=== PATIENT | male | born 1995 | race Caucasian/White ===

== ENCOUNTER 2023-11-01 14:53 | Emergency (ER) | payer SELFPAY ==
--- NOTE | 2023-11-01 14:52 | ECG_ITS ---
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 Measurements Intervals [place] Rate: 84 P: 76 OK: 152 QRS: 73 QRSD: 106 T: 46 QT: 356 QTc: 423 Interpretive Statements SINUS RHYTHM POSSIBLE LEFT ATRIAL ENLARGEMENT [-0.1mV P-WAVE IN V1/V2] POSSIBLE RIGHT VENTRICULAR CONDUCTION DELAY [RSR (QR) IN V1/V2] No previous ECG available for comparison Electronically Signed On 11-01-2023 22:49:22 CDT by Carito Edwards M.D. [email or web address].[email or web address]/store/[id number]
[2023-11-01 15:00] VITALS: BP 140/86; PULSE 68; RESP 16; TEMP 36.7; O2SAT 100; BMI 26.6
--- NOTE | 2023-11-01 15:42 | XR_ITS ---
WS: [id number] Exam: XR chest 1V portable [id number] Date/Time of Exam: 11/01/2023 3:43 PM Reason For Exam: chest pain No priors. Findings: The lungs are clear and fully expanded. Costophrenic angles are sharp. No infiltrates. Bronchovascula r relief appears normal. Cardiac silhouette is unremarkable. Bony elements are intact. XR/XR chest 1V portable [id number] IMPRESSION: Unremarkable chest radiograph.
[2023-11-01 16:15] LABS: Basophils % 0.5 %; Eosinophils # 0.1 10^3/uL (0.0-0.8); Eosinophils % 0.7 %; Hematocrit 42.9 % (37-53); Lymphocytes # 1.7 10^3/uL (0.8-4.8); Lymphocytes % 21.5 %; Mean Corpuscular HGB Conc 32.9 g/dL (30-55); Mean Corpuscular Hemoglobin 27.8 pg (27-33); Mean Corpuscular Volume 84.6 fl (82-101); Mean Platelet Volume 10.3 fL (7.4-10.4); Monocytes # 0.6 10^3/uL (0.2-0.9); Monocytes % 7.1 %; Neutrophils # 5.61 10^3/uL (1.8-7.7); Nucleated Red Blood Cells % 0 %; Platelet Count 333 10^3/cmm (157-399); Red Blood Count 5.07 10^6/uL (3.85-5.65); Red Cell Distribution Width 13.1 % (12.1-15.1); White Blood Count 8.03 10^3/uL (3.29-11.43)
[2023-11-01 16:33] LABS: Alanine Aminotransferase 14 U/L (0-41); Alkaline Phosphatase 70 U/L (40-130); Anion Gap 19.1 (5-19); Aspartate Amino Transferase 17 U/L (0-40); Blood Urea Nitrogen 10 mg/dL (6-20); Calcium 9.7 mg/dL (8.5-10.5); Carbon Dioxide 24 mmol/L (22-29); Chloride 100 mmol/L (98-107); Globulin 2.5 g/dL (1.3-4.6); Glomerular Filtration Rate 89.6 mL/min (90-130); Glucose 91 mg/dL (65-115); Osmolality Calculated 287 mOsm/kg (285-295); Potassium 4.1 mmol/L (3.5-5.1); Sodium 139 mmol/L (136-145); Total Bilirubin 1.1 mg/dL (0.15-1.2); Total Protein 7.5 g/dL (6.6-8.7)
[2023-11-01 16:39] LABS: Troponin(5th) Baseline < 6 ng/L (0-15)
[2023-11-01 16:50] VITALS: BP 158/89; PULSE 71; O2SAT 100
--- NOTE | 2023-11-01 17:19 | ED_ITS ---
HPI - Chest Pain 2 General: Chief Complaint: Chest Pain Stated Complaint: chest pain / lt arm numb Time Seen by Provider: 11/01/23 16:41 History of Present Illness: 28-year-old male presents emergency room with complaints of chest discomfort. He had chest discomfort on the left side of his chest radiating down his left arm worse with coughing. 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 He has no known history of any arrhythmias. No previous cardiac issues. Earlier today he had numbness and tingling extending into both hands and his face that has resolved. He is not currently having any symptoms. Associated symptoms: Deny abdominal pain, dyspnea or fever(s) Related Data Previous Rx's Medication Instructions Recorded pantoprazole 40 mg tablet,delayed 40 mg PO DAILY 8 weeks #60 tabs 11/01/23 release Allergies Allergy/AdvReac Type Severity Reaction Status Date / Time No Known Allergies Allergy Verified 11/01/23 15:04 Review of Systems 2 Const: Denies: fever(s) or chills Card: Denies: chest pain Resp: Denies: dyspnea GI: Denies: abdominal pain : Denies: dysuria, urinary frequency or urinary urgency Musc: Denies: neck pain or back pain Skin/Breast: Denies: rash Physical Exam 2 Const: COMMON NORMALS: no acute distress GENERAL APPEARANCE: cooperative and comfortable ORIENTATION/CONSCIOUSNESS: Yes awake, Yes oriented to person, Yes oriented to place and Yes oriented to time HENMT: COMMON NORMALS: normocephalic, atraumatic and hearing grossly normal bilaterally HEAD & SCALP: normocephalic and atraumatic Resp: COMMON NORMALS: normal respiratory effort, No retractions, No use of accessory muscles and clear to auscultation bilaterally AUSCULTATION: clear to auscultation bilaterally Cardio: COMMON NORMALS: regular rate, regular rhythm and No murmurs present (Cardio) RATE: regular rate RHYTHM: regular rhythm GI: COMMON NORMALS: Soft to palpation and No hepatosplenomegaly present A USCULTATION: Yes normoactive bowel sounds PALPATION: Yes Soft to palpation, No Tenderness to palpation present (GI), No Guarding due to palpation present (GI) and Yes No hepatosplenomegaly present Extremity: COMMON NORMALS: normal to inspection, capillary refill normal, no clubbing, cyanosis or edema, no calf tenderness and no pedal edema Neuro: SENSORIUM/ORIENTATION: Yes oriented to person, Yes oriented to place and Yes oriented to time Skin: COMMON NORMALS: no rashes or lesions noted GENERAL SKIN EXAM: no rashes or lesions noted Course 2 Vital Signs: Vital signs: Vital Signs Temperature 98.1 F 11/01/23 15:00 Pulse Rate 71 11/01/23 16:50 Respiratory Rate 16 11/01/23 15:00 Blood Pressure 158/89 11/01/23 16:50 Pulse Oximetry 100 11/01/23 16:50 Oxygen Delivery Me thod Room Air 11/01/23 16:50 MDM - Chest Pain Medical Decision Making EKG showed normal sinus rhythm no acute changes. Initial troponin in the normal range laboratory test not show any clinically significant abnormality and chest x-ray is normal. Patient chest x-ray was normal. We are not able to complete the workup as patient insisted on leaving. We did give him a prescription from pantoprazole from his description of things I think he may have been hyperventilating earlier and some of his chest pain is likely from reflux. We did try to encourage him to stay but he insisted on leaving. Encouraged him to return if he has any recurrence of symptoms or changes mind and wishes to complete the workup Lab Data I reviewed the patient's lab results. 11/01/23 16:04 11/01/23 16:04 Radiology Impressions Chest X-Ray 11/01/23 15:42 IMPRESSION: Unremarkable chest radiograph. Laboratory Results WBC 8.03 10^3/uL (3.29-11.43) 11/01/23 16:04 RBC 5.07 10^6/uL (3.85-5.65) 11/01/23 16:04 Hgb 14.10 g/dL (11.27-16.99) 11/01/23 16:04 Hct 42.9 % (37-53) 11/01/23 16:04 MCV 84.6 fl (82-101) 11/01/23 16:04 MCH 27.8 pg (27-33) 11/01/23 16:04 MCHC 32.9 g/dL (30-55) 11/01/23 16:04 RDW 13.1 % (12.1-15.1) 11/01/23 16:04 Plt Count 333 10^3/cmm (157-399) 11/01/23 16:04 MPV 10.3 fL (7.4-10.4) 11/01/23 16:04 Neut % (Auto) 70.0 % 11/01/23 16:04 Lymph % (Auto) 21.5 % 11/01/23 16:04 [place] % (Auto) 7.1 % 11/01/23 16:04 Eos % (Auto) 0.7 % 11/01/23 16:04 Baso % (Auto) 0.5 % 11/01/23 16:04 Neut # (Auto) 5.61 10^3/uL (1.8-7.7) 11/01/23 16:04 Lymph # (Auto) 1.7 10^3/uL (0.8-4.8) 11/01/23 16:04 [place] # (Auto) 0.6 10^3/uL (0.2-0.9) 11/01/23 16:04 Eos # (Auto) 0.1 10^3/uL (0.0-0.8) 11/01/23 16:04 Baso # (Auto) 0.0 10^3/uL (0.0-0.1) 11/01/23 16:04 Nucleated RBC % (auto) 0 % 11/01/23 16:04 Nucleated RBCs # 0.0 /100WBC 11/01/23 16:04 Sodium 139 mmol/L (136-145) 11/01/23 16:04 Potassium 4.1 mmol/L (3.5-5.1) 11/01/23 16:04 Chloride 100 mmol/L (98-107) 11/01/23 16:04 Carbon Dioxide 24 mmol/L (22-29) 11/01/23 16:04 Anion Gap 19.1 (5-19) H 11/01/23 16:04 BUN 10 mg/dL (6-20) 11/01/23 16:04 Creatinine 1.0 mg/dL (0.7-1.2) 11/01/23 16:04 GFR Calculation 89.6 mL/min (90-130) L 11/01/23 16:04 Glucose 91 mg/dL (65-115) 11/01/23 16:04 Calculated Osmolality 287 mOsm/kg (285-295) 11/01/23 16:04 Calcium 9.7 mg/dL (8.5-10.5) 11/01/23 16:04 Total Bilirubin 1.1 mg/dL (0.15-1.2) 11/01/23 16:04 AST 17 U/L (0-40) 11/01/23 16:04 ALT 14 U/L (0-41) 11/01/23 16:04 Alkaline Phosphatase 70 U/L (40-130) 11/01/23 16:04 Troponin T Baseline < 6 ng/L (0-15) 11/01/23 16:04 Total Protein 7.5 g/dL (6.6-8.7) 11/01/23 16:04 Albumin 5.0 g/dL (3.5-5.2) 11/01/23 16:04 Globulin 2.5 g/dL (1.3-4.6) 11/01/23 16:04 Urine Opiates Screen Negative ng/mL (Negative) 11/01/23 17:05 Ur Barbiturates Screen Negative ng/mL (Negative) 11/01/23 17:05 Ur Phencyclidine Scrn Negative ng/mL (Negative) 11/01/23 17:05 Ur Amphetamines Screen Negative ng/mL (Negative) 11/01/23 17:05 U Benzodiazepines Scrn Negative ng/mL (Negative) 11/01/23 17:05 Urine Cocaine Screen Negative ng/mL (Negative) 11/01/23 17:05 U Marijuana (THC) Screen Negative ng/mL (Negative) 11/01/23 17:05 All radiology interpretation(s) finalized by discharge Discharge Plan Discharge Patient Disposition: Home Clinical Impression: Atypical chest pain Condition: Stable Prescriptions: New pantoprazole 40 mg tablet,delayed release (DR/EC) 40 mg PO DAILY 56 Days Qty: 60 0RF Discharge Orders: Discharge ED (Routine); Ordered 11/01/23 Ordered By: Koffi Story Discharge Diet: As Directed Discharge Activity: Resume usual activity Patient Instructions: Diet for Stomach Ulcers and Gastritis (ED), GERD (Gastroesophageal Reflux Disease) (ED), Opioid Safety, Pain Management Activity Restrictions/Additional Instructions: Thank you for choosing [facility] for your healthcare needs today. It is very important that you follow up as instructed or that you return to the Emergency Department should you have concerns or if your condition changes or worsens in any way. You were seen in the emergency room with complaints of chest discomfort. Family description suspect that your discomfort is due to reflux. Your chest x-ray was normal your EKG was normal your first troponin was normal. Before we were able to complete the full workup you stated you wish to leave. We are discharging you with medication for your stomach. If at any point you wish to complete the workup you are welcome to return. I would recommend that you follow-up with your doctor within the next 1 to 2 weeks. If you have worsening symptoms return to the emergency room Coding Level of Care Code ED Dealer Analyst for Lili Skinner
--- NOTE | 2023-11-01 17:25 | ECG_ITS ---
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 Measurements Intervals [place] Rate: 61 P: 66 RI: 150 QRS: 77 QRSD: 106 T: 57 QT: 383 QTc: 388 Interpretive Statements SINUS RHYTHM POSSIBLE RIGHT VENTRICULAR CONDUCTION DELAY [RSR (QR) IN V1/V2] EARLY REPOLARIZATION [ST ELEVATION WITH NORMALLY INFLECTED T-WAVE] Compared to ECG 11/01/2023 14:52:55 Early repolarization now present Electronically Signed On 11-01-2023 23:00:31 CDT by Carito Edwards M.D. [id number]
[2023-11-01 18:15] LABS: Amphetamines Screen Urine Negative (Negative); Barbiturates Screen Urine Negative (Negative); Benzodiazepines Screen Urine Negative (Negative); Cocaine Screen Urine Negative (Negative); Opiate Screen Urine Negative (Negative); PCP Screen Urine Negative (Negative); THC Screen Urine Negative (Negative)
[2023-11-01 18:24] VITALS: BP 152/101; PULSE 87; O2SAT 95
[2023-11-01 18:36] LABS: Troponin 5 2HR Delta 0.00001 ABS# (0-10)
== END 2023-11-01 18:25 | disposition home or self-care (01) ==
PROVIDERS: Physician Assistant; Emergency Provider Family Medicine
DX: R07.89 Other chest pain (principal)
CPT/HCPCS: 36415; 71045; 80053; 80306; 84484; 85025; 93005; 99285